=== PATIENT | male | born 1985 | race Caucasian/White ===

== ENCOUNTER 2016-08-18 22:10 | Emergency (ER) | payer OTHER ==
[~2016-08-18] VITALS: Ht 188 cm; Wt 125.0 kg
[2016-08-18 22:55] VITALS: BP 127/75; PULSE 95; RESP 16; O2SAT 96
--- NOTE | 2016-08-18 23:36 | ED.REPORT ---
HPI-Sore Throat ONLY HPI/PE done Aug 18, 2016 ED Provider: Damion Mendieta MD Patient is a 31 year old male with a history of recent exudative tonsillitis who presents to the ED with tonsil pain and swelling that began yesterday. The patient also reports having generalized myalgias. Patient states that he needs to have a tonsillectomy, but has not yet had time to do so. He denies a fever or chills. Nursing Notes Stated Complaint: SORE THROAT, TONSILS Chief Complaint: General Complaint Nursing Notes Reviewed: Yes Allergies: Coded Allergies: Penicillins (Verified Allergy, Unknown, 07/02/16) Scheduled Azithromycin (Zithromax) 250 Mg Tablet 250 MG PO DAILY Prednisone (PredniSONE) 20 Mg Tablet 20 MG PO TID General Time Seen by MD: 23:34 Chief Complaint Other (tonsil pain and swelling) Hx Obtained From: Patient Arrived By: Walk-in Onset Occurred: Yesterday Symptom Duration: Since onset Quality: Painful Severity: Current: Moderate Severity: Maximum: Moderate Recent Healthcare: No recent doctor visit, No recent hospitalization Similar Sx Previous: Yes Past Medical History Past Medical History Sciatica Exudative tonsillitis Past Surgical History Oral surgery (wisdom teeth) Family History Sister- kidney stone Denies AAA or thoracic dissection Smoking History Never Smoker Social History Alcohol Use: Denies alcohol use Drug Use: Denies drug use Other Social History: Good social support, , Local resident Ambulatory Status Independent Review of Systems Constitutional: Denies: Chills, Fever Ears / Nose / Throat: Reports: Sore throat, Throat pain (tonsil pain) Complete sys rev & neg: except as marked. Musculoskeletal: Reports: Myalgia Physical Exam Initial Vital Signs Vital Signs (First) Date Time Temp Pulse Resp B/P Pulse Ox O2 Delivery O2 Flow Rate FiO2 08/18/16 22:55 36.9 95 16 127/75 96 Room Air Initial VS: Reviewed, Vital signs normal Head / Eyes: Atraumatic, Normocephalic, PERRL Extremities: Vascular intact, Neuro intact Skin: Warm, Dry, No cyanosis Neurologic: Alert, Oriented, Nonfocal Psychiatric: Mood/affect normal, Behavior normal, Normal thought content General/Constitutional: Awake, Alert, No acute distress ENT: Airway patent Pharynx / Tonsils / Uvula: Positive: Tonsillar swelling R (3+), Negative: Tonsillar erythema L, Tonsillar erythema R, Tonsillar exudate L, Tonsillar exudate R, Tonsillar swelling L Neck: Supple, No meningismus Head / Eyes: Normocephalic, PERRL, EOMI Respiratory / Chest: No respiratory distress, No stridor Cardiovascular: Heart rate NL, Regular rhythm, Heart sounds NL Interpretation & Diagnostics Interpretation & Diagnostics: Rapid Bedside Strep: Negative Re-Eval/Medical Decision Med Decision/Clinical Course 31-year-old male with a history of tonsillitis presents with throat pain with swallowing and inflamed tonsil. The left tonsil is about 3+, erythematous, with mild exudate. Strep negative. He was placed on erythromycin (penicillin allergic) and prednisone for exudative tonsillitis. Discharged home with instructions to follow-up with ENT as planned. Source of Hx: Old records Re-Evaluation/Progress : Time of Eval: 00:55 Patient Status: Condition improved Re-Evaluation/Progress Note: Strep was negative. Patient understands and agrees with the plan to be discharged home. Discharge instructions and follow-up discussed. All questions were addressed. Return to the ED warnings given. Counseled Regarding: Diagnosis, Need for follow-up, When/why to return to ED Discharge & Departure Primary Impression: Tonsillitis Disposition: Home Discharge Condition All VS Reviewed: Yes Condition: Stable Patient Instructions: Tonsillitis (ED) Additional Instructions: You have tonsillitis (but no evidence of strep). Azithromycin 500 mg by mouth now and then 250 mg daily for 4 days, first dose given and prescription written. Prednisone 20 mg by mouth 3 times a day for 3 days, first dose given in prescription written. Drink plenty of fluids. Tylenol and/or ibuprofen as needed for pain. Follow-up with your primary doctor as needed for persistent symptoms. Referrals: [facility] Scribe Attestation Portions of this note were transcribed by Sara Mccullough. I, Dr. Mendieta, personally performed the history, physical exam and medical decision-making; I reviewed and confirmed the accuracy of the information in the transcribed note. Signed by: Shaunna Benoit, 08/19/2016 0104 copies to: [facility] Damion Mendieta MD Aug 18, 2016 23:36 Sara Mccullough Aug 18, 2016 23:48
[2016-08-19] MEDS ORDERED: predniSONE 20 mg Tablet PO ONE (00:55)
[2016-08-19] MEDS ORDERED: ZIT250 PO (00:59)
[2016-08-19] MEDS ORDERED: PRE20 PO (00:59)
[2016-08-19 01:04] VITALS: BP 135/79; PULSE 79; RESP 16; O2SAT 96
[2016-09-08] MEDS ORDERED: PRE20 PO (20:10)
[2016-09-08] MEDS ORDERED: AZIT250T4 PO (20:10)
== END 2016-08-19 01:06 | disposition home or self-care (01) ==
LOC: SED 22:10
DX: J03.90 Acute tonsillitis, unspecified (principal); Z88.0 Allergy status to penicillin

== ENCOUNTER 2016-09-11 16:03 | Emergency (ER) | payer OTHER ==
[~2016-09-11] VITALS: Ht 180.3 cm; Wt 123.2 kg
[~2016-09-11 16:03] MED LIST: AZIT250T4 PO; PRE20 PO; ZIT250 PO
[2016-09-11 16:13] VITALS: BP 126/81; PULSE 82; RESP 14; O2SAT 96
--- NOTE | 2016-09-11 16:45 | ED.REPORT ---
HPI-URI / Cough / Cold Date of Service Sep 11, 2016 ED Provider: Byron Saenz DO A 31 year old male with a history of sciatica and exudative tonsillitis presents to the ED with rhinorrhea onset three days ago. Associated symptoms include nasal congestion, cough, and generalized myalgias. The patient denies ear pain or hemoptysis. He was in the ED on 09/08/16 with exudative tonsillitis and was discharged with antibiotics and a referral for tonsil removal. Nursing Notes Stated Complaint: SICK,COUGH Chief Complaint: FLU/Cold Symptoms Nursing Notes Reviewed: Yes Allergies: Coded Allergies: Penicillins (Verified Allergy, Unknown, 09/08/16) Scheduled Azithromycin (Zithromax) 250 Mg Tablet 250 MG PO DAILY Azithromycin (Zithromax (Z-Kvng)) 250 Mg Tablet 250 MG PO DIRECTED Take two tablets by mouth on day 1, then take one tablet daily on days 2 through 5. Prednisone (PredniSONE) 20 Mg Tablet 20 MG PO TID Prednisone (PredniSONE) 20 Mg Tablet 40 MG PO DAILY General Time Seen by MD: 16:44 Chief Complaint Runny nose Hx Obtained From: Patient Arrived By: Walk-in Onset Occurred: 3 days ago Symptom Duration: Since onset Location: : Diffuse myalgia Quality: Aching, Painful Severity: Current: Moderate Severity: Maximum: Moderate Associated with: Reports: Body aches, Cough, Denies: Fever Pertinent Negative: Relieved by nothing Context: Immunization Status General: Unknown Recent Healthcare: Recent doctor visit Similar Sx Previous: Yes Past Medical History Past Medical History Sciatica Exudative tonsillitis Past Surgical History Oral surgery (wisdom teeth) Family History Sister- kidney stone Denies AAA or thoracic dissection Smoking History Never Smoker Social History Alcohol Use: Denies alcohol use Drug Use: Denies drug use Other Social History: Good social support, , Local resident Ambulatory Status Independent Review of Systems Constitutional: Denies: Fever Eyes: Denies: Eye pain bilateral Ears / Nose / Throat: Reports: Nasal congestion Respiratory: Reports: Non-productive cough, Denies: Hemoptysis Allergy / Immune: Reports: Rhinorrhea Complete sys rev & neg: except as marked. Musculoskeletal: Reports: Myalgia (Generalized) Physical Exam Initial Vital Signs Vital Signs (First) Date Time Temp Pulse Resp B/P Pulse Ox O2 Delivery O2 Flow Rate FiO2 09/11/16 16:13 36.3 82 14 126/81 96 Room Air Initial VS: Reviewed Head / Eyes: Atraumatic, Normocephalic Cardiovascular: Regular rate & rhythm, Heart sounds normal Skin: Warm, Dry, No cyanosis Neurologic: Alert, Oriented, Nonfocal Psychiatric: Mood/affect normal, Behavior normal, Normal thought content General/Constitutional: Awake, Alert ENT: Airway patent, Mucous membranes moist Pharynx / Tonsils / Uvula: Positive: Tonsillar swelling L, Tonsillar swelling R Respiratory / Chest: No respiratory distress Wheezing / Retractions: Positive: Wheezing moderate (Squeaky, right lung) Neck: Atraumatic, Supple, No meningismus, Full range of motion Interpretation & Diagnostics INFLUENZA NEGATIVE X-Ray Chest Interpretation Chest Xray Interpretation: IMPRESSION: No acute cardiopulmonary findings. Dictated by: Priscila Head M.D. on 09/11/2016 at 17:35 View: AP & lat Interpretation / Wet Read by: Interpret - Radiologist Re-Eval/Medical Decision Med Decision/Clinical Course PE unlikely: Patient had no pleuritic pain, no hemoptysis, no prior DVT/PE. PE rule out criteria met. Symptoms started with sore throat and runny nose. He now has cough. He is on a Z-Kvng. Chest x-ray is normal. Pulmonary emboli rule out criteria met. D- dimer testing was not indicated. PE felt to be highly unlikely. He does have mild bronchospasm this was treated with a DuoNeb with prompt relief. An albuterol MDI will be provided for. He does have significant body aches and frequent cough. Short course of hydrocodone with acetaminophen prescribed for this. Source of Hx: Old records Re-Evaluation/Progress : Time of Eval: 18:20 Patient Status: Condition improved Re-Evaluation/Progress Note: Discussed with patient x-ray and lab results, diagnosis, and plan for discharge. Follow-up and return to the ER instructions given. Patient agrees with plan for care and all questions were addressed. Counseled Regarding: Diagnosis, Lab results, Need for follow-up, When/why to return to ED Discharge & Departure Impression: Primary Impression: Bronchospasm Additional Impressions: Bronchitis Cough Disposition: Home Discharge Condition All VS Reviewed: Yes Condition: Stable Patient Instructions: Acute Bronchitis (ED) Additional Instructions: Thank you for entrusting us with your care. Your exam today was reassuring. Finish the Z-Kvng and Prednisone. Albuterol two puffs every two hours as needed for wheezing. 1-2 [place] every six hours as needed for pain. Do not drink alcohol, drive, or consume acetaminophen while taking [place]. Call your primary care provider tomorrow for a follow-up appointment. Return to the ER with any new or worsening symptoms. Referrals: [facility] (PCP) [facility] Scribe Attestation Portions of this note were transcribed by Charlene Horne. I, Dr. Saenz, personally performed the history, physical exam, and medical decision-making; I reviewed and confirmed the accuracy of the information in the transcribed note. Signed by: Shaunna Churchill, 09/11/2016, 18:32 copies to: [facility] Risk Factors Well's Criteria for PE Well's PE Score: 0-2 pts (low risk 3.6%) Byron Saenz DO Sep 11, 2016 16:45 CHARLENE HORNE Sep 11, 2016 17:08
[2016-09-11] MEDS ORDERED: Albuterol-Ipratropium 3 mL Inhalation Solution NEB ONE (17:10)
[2016-09-11] MEDS ORDERED: HYDROcodone-APAP 5-325 mg Tablet PO ONE (17:10)
--- NOTE | 2016-09-11 17:38 | DRSVH ---
PROCEDURE: X-RAY CHEST, TWO VIEWS ([id number]) INDICATIONS: wheeze, cough TECHNIQUE: 2 views of the chest were acquired. COMPARISON: None. FINDINGS: Surgical changes and devices: None. Lungs and pleura: No pleural effusions or pneumothorax. Lungs are clear. Mediastinum: Mediastinal contours are normal. Heart size is normal. Bones and chest wall: No suspicious bony abnormalities. Soft tissues appear unremarkable. IMPRESSION: No acute cardiopulmonary findings. Dictated by: Priscila Head M.D. on 09/11/2016 at 17:35 Approved by: Priscila Head M.D. on 09/11/2016 at 17:36
[2016-09-11 18:08] VITALS: PULSE 86; RESP 20; O2SAT 96
[2016-09-11 18:27] VITALS: BP 122/78; PULSE 87; RESP 17; O2SAT 98
== END 2016-09-11 18:28 | disposition home or self-care (01) ==
LOC: SED 16:03
DX: J20.9 Acute bronchitis, unspecified (principal); Z88.0 Allergy status to penicillin
CPT/HCPCS: 71020; 87804; 94664; 99284; J7620